=== PATIENT | female | born 1955 | race Caucasian/White ===

== ENCOUNTER 2017-03-08 23:34 | Emergency (ER) | payer BC ==
[~2017-03-08] VITALS: Ht 154.9 cm; Wt 83.0 kg
[~2017-03-08 23:34] MED LIST: CHILD'S ASA81 MG PO; LIPITOR20 MG PO; MAXZIDE PO; METOPROL TAR100 MG PO; OMEPRAZOLE20 MG PO; SYNTHROID50 MCG PO
[2017-03-08] MEDS ORDERED: LIPITOR20 MG PO (23:45)
[2017-03-09 00:43] VITALS: BP 176/82
== END 2017-03-09 00:43 | disposition home or self-care (01) | DRG 204 ==
LOC: ED 23:34
DX: R05 Cough (principal); I10 Essential (primary) hypertension; E78.5 Hyperlipidemia, unspecified

== ENCOUNTER 2017-06-03 15:16 | Emergency (ER) | payer BC ==
[~2017-06-03] VITALS: Ht 154.9 cm; Wt 81.0 kg
[2017-06-03 16:05] LABS: HEMATOCRIT 37.4 % (37.0-47.0); HEMOGLOBIN 13.4 g/dl (12.0-16.0); IMMATURE GRANULOCYTES 0.3 % (0.0-1.0); MEAN CELL VOLUME 93.5 fL CALC (80.0-100.0); MEAN CORPUSCULAR HGB 33.5 pG CALC (26.0-32.0); MEAN CORPUSCULAR HGB CONC 35.8 g/L CALC (32.0-36.0); NEUT# 4.45 thou/uL (2.00-7.15); RED CELL DISTRI WIDTH 12.1 % (11.5-15.5)
[2017-06-03 16:06] LABS: URINE BILIRUBIN - DIPSTICK NEGATIVE (NEGATIVE); URINE BLOOD DIPSTICK MODERATE (NEGATIVE); URINE CLARITY CLEAR; URINE COLOR YELLOW; URINE GLUCOSE - DIPSTICK NEGATIVE (NEGATIVE); URINE KETONE NEGATIVE (NEGATIVE); URINE LEUK ESTERASE NEGATIVE (Negative); URINE NITRITE - DIPSTICK NEGATIVE (Negative); URINE PROTEIN - DIPSTICK TRACE mg/dL (NEG-TRACE); URINE UROBILINOGEN - DIPSTICK 0.2 E.U./dL (0.2)
[2017-06-03 16:45] LABS: ALBUMIN 4.7 g/dL (3.2-5.0); ALKALINE PHOSPHATASE 96 u/l (38-126); ANION GAP 18 (6-22 (CALC)); BILIRUBIN, TOTAL 0.8 mg/dL (0.0-1.4); BUN 19 mg/dL (8-23); BUN/CREATININE RATIO 18 (12-20 (CALC)); CALCIUM 9.9 mg/dL (8.4-10.2); CARBON DIOXIDE 25 mmol/l (22-30); CHLORIDE 103 mmol/l (95-108); CREATININE 1.1 mg/dL (0.5-1.0); GFR 50 ML/MIN (>=60 (CALC)); GFR FOR AFR.AMER. > 60 ML/MIN (>=60 (CALC)); GLUCOSE 121 mg/dL (82-115); LIPASE 109 u/l (23-300); POTASSIUM 4.1 mmol/l (3.5-5.1); SGOT/AST 29 u/l (9-36); SGPT/ALT 42 u/l (11-66); SODIUM 142 mmol/l (137-146); TOTAL PROTEIN 7.8 g/dL (6.3-8.2)
[2017-06-03] MEDS ORDERED: XANAX0.25 MG PO (17:49)
[2017-06-03] MEDS ORDERED: TAMSULOSIN0.4 MG PO (18:11)
[2017-06-03] MEDS ORDERED: TRAMADOL HYDROC50 MG PO (18:11)
[2017-06-03] MEDS ORDERED: KEFLEX500 M1 PO (18:11)
[2017-06-03 18:20] VITALS: BP 144/70
[2017-06-03 18:30] LABS: URINE SQUAMOUS EPITHELIAL CELL FEW EPI/hpf (0-FEW)
== END 2017-06-03 18:21 | disposition home or self-care (01) | DRG 694 ==
LOC: ED 15:16
PROVIDERS: Emergency Medicine
DX: N20.0 Calculus of kidney (principal); I10 Essential (primary) hypertension; E78.5 Hyperlipidemia, unspecified; Z87.442 Personal history of urinary calculi

== ENCOUNTER 2017-06-17 00:19 | Emergency (ER) | payer BC ==
[~2017-06-17] VITALS: Ht 154.9 cm; Wt 80.4 kg
[~2017-06-17 00:19] MED LIST changes: +KEFLEX500 M1 PO; +TAMSULOSIN0.4 MG PO; +TRAMADOL HYDROC50 MG PO; +XANAX0.25 MG PO
[2017-06-17 01:01] LABS: HEMATOCRIT 36.6 % (37.0-47.0); IMMATURE GRANULOCYTES 0.3 % (0.0-1.0); MEAN CELL VOLUME 94.1 fL CALC (80.0-100.0); MEAN CORPUSCULAR HGB 33.4 pG CALC (26.0-32.0); MEAN CORPUSCULAR HGB CONC 35.5 g/L CALC (32.0-36.0); NEUT# 5.96 thou/uL (2.00-7.15); RED BLOOD COUNT 3.89 mill/uL (4.20-5.60); RED CELL DISTRI WIDTH 12.1 % (11.5-15.5)
[2017-06-17 01:07] LABS: ALBUMIN 4.5 g/dL (3.2-5.0); ALKALINE PHOSPHATASE 111 u/l (38-126); ANION GAP 18 (6-22 (CALC)); BILIRUBIN, TOTAL 0.7 mg/dL (0.0-1.4); BUN 21 mg/dL (8-23); BUN/CREATININE RATIO 24 (12-20 (CALC)); CALCIUM 9.8 mg/dL (8.4-10.2); CARBON DIOXIDE 25 mmol/l (22-30); CHLORIDE 102 mmol/l (95-108); CREATININE 0.9 mg/dL (0.5-1.0); GFR > 60 ML/MIN (>=60 (CALC)); GFR FOR AFR.AMER. > 60 ML/MIN (>=60 (CALC)); GLUCOSE 122 mg/dL (82-115); POTASSIUM 3.9 mmol/l (3.5-5.1); SGOT/AST 27 u/l (9-36); SGPT/ALT 30 u/l (11-66); SODIUM 141 mmol/l (137-146); TOTAL PROTEIN 7.4 g/dL (6.3-8.2)
[2017-06-17 01:19] LABS: MYOGLOBIN 28 ng/mL (0 - 62)
[2017-06-17 01:37] LABS: TSH, 3RD GENERATION 1.83 uIU/mL (0.47 - 4.68)
[2017-06-17 01:42] LABS: URINE BILIRUBIN - DIPSTICK NEGATIVE (NEGATIVE); URINE BLOOD DIPSTICK NEGATIVE (NEGATIVE); URINE CLARITY CLEAR; URINE COLOR YELLOW; URINE GLUCOSE - DIPSTICK NEGATIVE (NEGATIVE); URINE KETONE NEGATIVE (NEGATIVE); URINE LEUK ESTERASE NEGATIVE (NEGATIVE); URINE NITRITE - DIPSTICK NEGATIVE (Negative); URINE PROTEIN - DIPSTICK NEGATIVE (NEG-TRACE); URINE SPECIFIC GRAVITY <=1.005; URINE UROBILINOGEN - DIPSTICK 0.2 E.U./dL (0.2)
[2017-06-17 02:15] VITALS: BP 159/76
== END 2017-06-17 02:15 | disposition left against medical advice (07) | DRG 313 ==
LOC: ED 00:19
PROVIDERS: Emergency Medicine
DX: R07.9 Chest pain, unspecified (principal); I10 Essential (primary) hypertension; Z91.19 Patient's noncompliance with other medical treatment and regimen

== ENCOUNTER 2018-02-22 22:23 | Emergency (ER) | payer BC ==
[~2018-02-22] VITALS: Ht 154.9 cm; Wt 81.0 kg
[2018-02-22] MEDS ORDERED: VOLTAREN - GENE75 MG PO (22:58)
[2018-02-22 23:20] VITALS: BP 176/89
== END 2018-02-22 23:20 | disposition home or self-care (01) | DRG 159 ==
LOC: ED 22:23
DX: M26.601 Right temporomandibular joint disorder, unspecified (principal)

== ENCOUNTER 2019-08-24 02:44 | Emergency (ER) | payer BC ==
[~2019-08-24] VITALS: Ht 154.9 cm; Wt 81.2 kg
[~2019-08-24 02:44] MED LIST changes: +VOLTAREN - GENE75 MG PO
[2019-08-24 03:30] LABS: HEMATOCRIT 41.6 % (37.0-47.0); HEMOGLOBIN 14.4 g/dl (12.0-16.0); IMMATURE GRANULOCYTES 0.2 % (0.0-5.0); MEAN CELL VOLUME 94.3 fL CALC (80.0-100.0); MEAN CORPUSCULAR HGB 32.7 pG CALC (26.0-32.0); MEAN CORPUSCULAR HGB CONC 34.6 g/L CALC (32.0-36.0); NEUT# 4.23 thou/uL (2.00-7.15); RED BLOOD COUNT 4.41 mill/uL (4.20-5.60); RED CELL DISTRI WIDTH 12.2 % (11.5-15.5)
[2019-08-24 03:46] LABS: ALBUMIN 4.8 g/dL (3.2-5.0); ALKALINE PHOSPHATASE 110 u/l (38-126); ANION GAP 17 (6-22 (CALC)); BILIRUBIN, TOTAL 0.5 mg/dL (0.0-1.4); BUN 21 mg/dL (8-23); BUN/CREATININE RATIO 25 (12-20 (CALC)); CARBON DIOXIDE 25 mmol/l (22-30); CHLORIDE 101 mmol/l (95-108); CREATININE 0.8 mg/dL (0.5-1.0); GFR > 60 ML/MIN (>=60 (CALC)); GFR FOR AFR.AMER. > 60 ML/MIN (>=60 (CALC)); POTASSIUM 3.9 mmol/l (3.5-5.1); SGOT/AST 29 u/l (9-36); SODIUM 139 mmol/l (137-146); TOTAL PROTEIN 8.5 g/dL (6.3-8.2)
[2019-08-24 04:25] VITALS: BP 169/84
== END 2019-08-24 04:37 | disposition home or self-care (01) | DRG 607 ==
LOC: ED 02:44
PROVIDERS: Emergency Medicine
DX: S00.86XA Insect bite (nonvenomous) of other part of head, initial encounter (principal); I10 Essential (primary) hypertension; E03.9 Hypothyroidism, unspecified; W57.XXXA Bitten or stung by nonvenomous insect and other nonvenomous arthropods, initial encounter

== ENCOUNTER 2020-08-11 16:53 | Emergency (ER) | payer BC ==
[~2020-08-11] VITALS: Ht 154.9 cm; Wt 79.5 kg
[2020-08-11 21:00] VITALS: BP 166/83
== END 2020-08-11 21:11 | disposition home or self-care (01) | DRG 605 ==
LOC: ED 16:53
DX: S00.33XA Contusion of nose, initial encounter (principal); I10 Essential (primary) hypertension; E03.9 Hypothyroidism, unspecified; F41.9 Anxiety disorder, unspecified; Y93.89 Activity, other specified; Y92.79 Other farm location as the place of occurrence of the external cause; W22.8XXA Striking against or struck by other objects, initial encounter

== ENCOUNTER 2023-04-30 19:11 | Emergency (ER) | payer MEDICARE ==
[~2023-04-30] VITALS: Ht 154.9 cm; Wt 82.0 kg
[2023-04-30 19:22] VITALS: BP 179/85
[2023-04-30 19:31] VITALS: BP 192/103
[2023-04-30 19:48] VITALS: BP 192/103
== END 2023-04-30 19:40 | disposition left against medical advice (07) ==
LOC: ED 19:11
DX: T63.001A Toxic effect of unspecified snake venom, accidental (unintentional), initial encounter (principal); H61.192 Noninfective disorders of pinna, left ear; H61.21 Impacted cerumen, right ear; I10 Essential (primary) hypertension; E03.9 Hypothyroidism, unspecified; E78.00 Pure hypercholesterolemia, unspecified; F41.9 Anxiety disorder, unspecified; Z53.29 Procedure and treatment not carried out because of patient's decision for other reasons